=== PATIENT | female | born 1965 | race Caucasian/White ===

== ENCOUNTER → 2016-07-26 | Outpatient (CLI) | payer BC | LOC: LAB 10:12 | DX: J00 Acute nasopharyngitis [common cold] (principal); E03.4 Atrophy of thyroid (acquired) ==

== ENCOUNTER → 2020-08-22 | Outpatient (CLI) | payer BC | LOC: MAMMO 15:43 | DX: Z12.31 Encounter for screening mammogram for malignant neoplasm of breast (principal) ==

== ENCOUNTER → 2023-09-08 | Outpatient (CLI) | payer BC ==
[2023-09-08 15:37] LABS: BASO # 0.02 K/mm3 (0.02-0.10); EOS # 0.03 K/mm3 (0.04-0.40); EOS % 0.7 % (1.0-5.0); HEMATOCRIT 39.4 % (37.0-47.0); HEMOGLOBIN 12.6 g/dL (12.5-16.0); LYMPH# 1.31 K/mm3 (1.50-4.00); MEAN CELL VOLUME 98 fl (78-100); MEAN CORPUSCULAR HEMOGLOBIN 31 pg (27-31); MEAN CORPUSCULAR HGB CONC 32 g/dL (33-37); MEAN PLATELET VOLUME 9.4 fl (7.4-10.4); MONO # 0.21 K/mm3 (0.20-0.80); NEU # 2.45 K/mm3 (1.40-6.50); PLATELET COUNT 189 K/mm3 (130-400); RED BLOOD COUNT 4.02 M/mm3 (4.10-5.30); RED CELL DISTRIBUTION WIDTH 11.8 % (11.5-14.5)
[2023-09-08 15:41] LABS: ALBUMIN 4.5 g/dL (3.5-5.0); CALCIUM 9.9 mg/dL (8.3-10.5)
[2023-09-08 15:43] LABS: TOTAL PROTEIN 6.9 g/dL (6.4-8.3)
[2023-09-08 15:44] LABS: TOTAL BILIRUBIN 0.6 mg/dL (0.2-1.2)
[2023-09-08 15:51] LABS: MAGNESIUM 2.05 mg/dL (1.60-2.60)
[2023-09-09 10:17] LABS: FOLATE (FOLIC ACID) 16.3 ng/mL (2.0-20.0)
== END ==
LOC: LAB 15:16
PROVIDERS: Internal Medicine
DX: Z00.00 Encounter for general adult medical examination without abnormal findings (principal); E78.2 Mixed hyperlipidemia; K90.9 Intestinal malabsorption, unspecified; R00.2 Palpitations

== ENCOUNTER → 2023-09-23 | Outpatient (CLI) | payer BC | LOC: CARDREHAB 07:58 | DX: R06.00 Dyspnea, unspecified (principal) ==